=== PATIENT | male | born 1955 | race African-American/Black ===

== ENCOUNTER → 2020-09-24 13:43 | Outpatient (CLI) | payer MEDICAID, SELFPAY ==
--- NOTE | 2020-09-24 13:49 | VDUE_ITS ---
Reason For Study: ESRD Right Arm Left Arm Right Cephalic Vein at the wrist measures Left Cephalic Vein at the wrist measures 0.11 x 0.11 cm. 0.08 x 0.09 cm. Right Cephalic Vein in the forearm measures Left Cephalic Vein in the forearm measures 0.10 x 0.10 cm. 0.08 x 0.10 cm. Right Cephalic Vein below antecub measures Left Cephalic Vein below antecub measures 0.10 x 0.11 cm. 0.08 x 0.08 cm. Right Cephalic Vein mid bicep measures 0.07 Unable to visualized cephalic vein in the x 0.08 cm. upper arm. Unable to visualized cephalic vein at above Basilic vein at origin measures 0.22 x 0.20 antecube and axillary. cm. Right Basilic Vein at the origin measures Basilic vein at bicep measures 0.15 x 0.15 0.25 x 0.26 cm. cm. Right Basilic Vein mid bicep measures 0.15 x Basilic vein above antecub measures 0.22 x 0.15 cm. 0.20 cm. Right Basilic Vein above antecub measures Left Brachial artery measures 0.53 x 0.55 cm 0.16 x 0.14 cm. with a velocity of 124 cm/sec. Right Brachial artery measures 0.53 x 0.55 Left Radial artery measures 0.35 x 0.33 cm cm with a velocity of 137.4 cm/sec. with a velocity of 113 cm/sec. Right Radial artery measures 0.36 x 0.32 cm with a velocity of 89 cm/sec. Patient Safety Technically limited study due to vessel size. Interpretation Summary Technically limited study due to the extraordinarily small vessel size identified. Seemingly patent and compressible bilateral upper extremity cephalic and basilic veins Diminutive vessel size makes potential creation of arteriovenous fistula questionable Normal bilateral brachial and radial artery dimensions and flow. Ordering Physician: Reza Summers Performed By: Lucia Don, RVKev ?
== END ==
PROVIDERS: PCP Internal Medicine Nephrology; Visit Provider Internal Medicine Nephrology
DX: Z01.818 Encounter for other preprocedural examination (principal); N18.6 End stage renal disease
CPT/HCPCS: 93970